=== PATIENT | male | born 1950 | race Caucasian/White ===

== ENCOUNTER 2017-01-16 16:44 | Inpatient (IN) | payer OTHER ==
[~2017-01-16] VITALS: Ht 175.3 cm; Wt 70.8 kg
[~2017-01-16 16:44] MED LIST: ASPI-1063 PO; BUSP15TA3 PO; CLON0.5T4 PO; FERR-57 PO; FLUT1AER INH; FLUT1DIS5 INH; LAMO100T PO; LASI20 IVP; LEVO175T2 PO; LUBI24CA5 PO; QUET50TA14 PO; TRAZ-126 PO
[2017-01-16 16:45] VITALS: BP 152/82; PULSE 79; RESP 19; TEMP 98; O2SAT 100
--- NOTE | 2017-01-16 16:45 | NUR ---
PT. PLACED IN ROOM 8, REPORT GIVEN TO MALENA GAYTAN
--- NOTE | 2017-01-16 17:00 | NUR ---
DR. FONG AT BEDSIDE EXAMINING THE PT.
--- NOTE | 2017-01-16 17:05 | NUR ---
Pt. 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
[2017-01-16] MEDS ORDERED: KETOROLAC TROMETHAMINE 60 MG/2 ML VIAL IM ONE (17:15)
--- NOTE | 2017-01-16 17:30 | NUR ---
Dietary called for diet tray
--- NOTE | 2017-01-16 18:11 | NUR ---
Pt. verbalizes comfort states pain 2/10 at this time
--- NOTE | 2017-01-16 19:49 | NUR ---
dr. Johnson at bedside talking to pt. about furthur care
--- NOTE | 2017-01-16 20:01 | NUR ---
medication reconciliation completed as stated by pt.
[2017-01-16 20:22] LABS: BASOPHILS # (AUTO) 0.1 K/uL (0.0-0.2); BASOPHILS % (AUTO) 0.8 % (0.0-2.0); EOSINOPHILS % (AUTO) 0.2 % (0.0-4.0); HEMATOCRIT 34.8 % (36-54); HEMOGLOBIN 11.4 g/dL (14.0-18.0); LYMPHOCYTES # (AUTO) 1.7 K/uL (1.0-5.5); LYMPHOCYTES % (AUTO) 20.9 % (20.5-51.5); MEAN CORPUSCULAR HEMOGLOBIN 28 pg (27-31); MEAN CORPUSCULAR HGB CONC 33 % (32-36); MEAN CORPUSCULAR VOLUME 84 fL (79.0-98.0); MONOCYTES # (AUTO) 0.8 K/uL (0.0-1.0); MONOCYTES % (AUTO) 9.6 % (1.7-9.3); NEUTROPHILS # (AUTO) 5.6 K/uL (1.8-7.7); NEUTROPHILS % (AUTO) 68.5 % (40.0-70.0); PLATELET COUNT (AUTO) 397 K/uL (130-430); RED BLOOD CELL COUNT(AUTO) 4.13 MIL/uL (4.2-6.2); RED CELL DISTRIBUTION WIDTH 14.3 % (9.0-15.0); WHITE BLOOD COUNT (AUTO) 8.2 K/uL (4.8-10.8)
[2017-01-16 20:25] LABS: ALANINE AMINOTRANSFERASE 19 U/L (12-78); ALBUMIN 3.1 g/dL (3.4-4.8); ANION GAP 4 (5-15); ASPARTATE AMINOTRANSFERASE 25 U/L (10-37); CALCIUM 9.4 mg/dL (8.4-11.0); CHLORIDE 104 mmol/L (98-107); CREATININE 1.41 mg/dL (0.55-1.30); GLUCOSE 113 mg/dL (70-99); POTASSIUM 4.3 mmol/L (3.5-5.1); SODIUM SERUM 136 mmol/L (136-145); TOTAL BILIRUBIN 0.3 mg/dL (0.0-1.0); TOTAL PROTEIN, SERUM 7.5 g/dL (6.4-8.3); UREA NITROGEN, BLOOD 31 mg/dL (8-21)
[2017-01-16 20:28] LABS: GFR AFRICAN AMERICAN 65 mL/min (>90)
[2017-01-16] MEDS ORDERED: MORPHINE 4 MG/ML INJ. SYRINGE IVP ONE (20:45)
--- NOTE | 2017-01-16 21:00 | NUR ---
called DR. West waiting on admission orders
[2017-01-16 21:38] LABS: LITHIUM < 0.2 mEq/L (0.50-1.0)
--- NOTE | 2017-01-16 22:00 | NUR ---
call from dr. West was disconnected, orders not received yet
[2017-01-16] MEDS ORDERED: ONDANSETRON HCL 4 MG/2 ML VIAL IVP PRN (22:45)
--- NOTE | 2017-01-16 22:55 | NUR ---
Patient will be admitted to care of dr. brambila. Admitted to med surg unit. Will go to room 135. Belongings list completed. Summary report printed. Report will be given at bedside.
[2017-01-16 23:05] VITALS: BP 101/59; PULSE 78; RESP 17; TEMP 98.5; O2SAT 100
--- NOTE | 2017-01-16 23:05 | NUR ---
ADMISSION NOTE Received patient from ER via gurney. Patient admitted with diagnosis of FRACTURE. Patient is awake, alert, oriented X 4. Patient oriented to hospital room, call light, toileting, pain management and safety-teach back done. Personal belongings checked and Belongings List documented. Call light within reach.
--- NOTE | 2017-01-16 23:10 | NUR ---
Initial Notes Received patient sitting in chair. Patient awake, alert, oriented. Denies any acute distress at this time. Vital signs stable. Breathing is even and unlabored on room air. IV site patent/clean/dry. Right need swollen and tender. 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 Scabs noted to bilateral knees, clean/dry, open to air, photos taken and charted. Educated patient on use of call light for assistance and fall precautions, patient verbalized understanding. Call light in hand, fall precautions in place, will continue to monitor.
--- NOTE | 2017-01-16 23:12 | NUR ---
paged paged for Dr West, dialed . s/w [facility].
[2017-01-16] MEDS: MORPHINE 2 MG/ML INJ. SYRINGE IVP PRN (23:36)
[2017-01-17] VITALS (8 sets, daily range): BP systolic 93–143; BP diastolic 53–80; PULSE 56–92; RESP 16–18; TEMP 96.7–98.1; O2SAT 92–99
--- NOTE | 2017-01-17 | NUR ---
Rounds Patient resting in bed, awake. Patient denies any acute distress, stated previous administered pain medication has helped. Breathing is even and unlabored. Snack given. Call light in hand, will continue to monitor.
--- NOTE | 2017-01-17 02:00 | NUR ---
Rounds Patient resting in bed with eyes closed. No acute distress noted, breathing is even and unlabored. Call light in hand, fall precautions in place. Will continue to monitor.
--- NOTE | 2017-01-17 04:06 | NUR ---
Rounds Patient resting in bed with eyes closed, easily aroused. Patient denies any acute distress or pain at this time. Breathing is even and unlabored. Needs addressed. Call light in hand, fall precautions in place. Will continue to monitor.
[2017-01-17] MEDS: MORPHINE 2 MG/ML INJ. SYRINGE IVP PRN (04:43)
--- NOTE | 2017-01-17 06:42 | NUR ---
Closing Notes Patient resting in bed, awake. Patient denies any acute distress or pain at this time. Breathing is even and unlabored. IV site patent/clean/dry, no S/S infection/infiltration noted. Needs addressed throughout shift. Call light in hand, fall precautions in place. Will continue to monitor for changes and safety, and endorse all patient care/needs to oncoming nurse.
--- NOTE | 2017-01-17 08:00 | NUR ---
initial notes rec pt awake alert and eating breakfast. ivl on the l ac intact. no infiltration noted.r knee noted to be swollen. pt requested to go out and smoke and was accompanied by cheko via wheelchair. resp easy and unlabored . bed in low position and side rails up and locked. call light within and knows when to call for assists. .
--- NOTE | 2017-01-17 09:00 | NUR ---
rounds seen by dr trujillo in the room and ordered for patient to have sx at 1700 today.
--- NOTE | 2017-01-17 09:28 | NUR ---
Nutrition Update Samuel Scale 18 noted. Pt admitted for: Fracture Diet: Regular diet. BMI: 23.1 kg/m2. RD to follow per nutrition care standards.
[2017-01-17] MEDS: MORPHINE 4 MG/ML INJ. SYRINGE IVP PRN ×4 (09:46→23:08)
--- NOTE | 2017-01-17 10:00 | NUR ---
rounds pt did sign a consent for sx with dr trujillo today. npo maintained and due pain med was given as requested.
[2017-01-17] MEDS ORDERED: PIPERACILLIN/TAZO 3.375/DEX-IS 50 ML IV SCH (10:15)
--- NOTE | 2017-01-17 10:17 | NUR ---
REASON FOR CONSULTATION:POSSIBLE SEPTIC ARTHTIS WAS CONSULT CALLED?Y PERSON WHO WAS NOTIFIED:KIM CONSULTING PHYSICIAN:DR. ORO VINYL CUTTER SPECIALTY:ID VINYL CUTTER PHONE NUMBER:[phone]
--- NOTE | 2017-01-17 12:30 | NUR ---
rounds pt was taken outside via wheelchair by brittany to smoke. no sob noted. awaiting for surgery.
--- NOTE | 2017-01-17 14:30 | NUR ---
rounds pt was picked up for surgery via bed. no sob noted.
[2017-01-17] MEDS ORDERED: CEFAZOLIN 2 GM IVPB PREMIX 50 ML IV ONE (15:15)
[2017-01-17] MEDS ORDERED: BUPIVACAINE /EPINEPHRINE/PF 0.25% 30 ML VIAL INJ ONE (15:15)
[2017-01-17] MEDS ORDERED: LR 1,000 ML IV.SOLN IV ONE (15:15)
[2017-01-17] MEDS ORDERED: fentaNYL CITRATE/PF 100 MCG/2 ML AMP IVP ONE (15:15)
[2017-01-17] MEDS ORDERED: NEOSTIGMINE METHYLSULFATE 1 MG/ML, 10 ML VIAL IVP ONE (15:15)
[2017-01-17] MEDS ORDERED: PROPOFOL 200MG/ 20ML VIAL (DIPRIVAN) IV ONE (15:15)
[2017-01-17] MEDS ORDERED: GLYCOPYRROLATE 0.2 MG/ML VIAL IJ ONE (15:15)
[2017-01-17] MEDS ORDERED: SEVOFLURANE 15 MIN GAS INH ONE (15:15)
[2017-01-17] MEDS ORDERED: MIDAZOLAM HCL 5 MG/5 ML VIAL IVP ONE (15:15)
[2017-01-17] MEDS ORDERED: ROCURONIUM BROMIDE 10 MG/ML (ZEMURON) IV ONE (15:15)
[2017-01-17] MEDS ORDERED: POLYMYXIN 500,000/BACIT.10,000 UNITS in NS IRR 1 L IR ONE ×2 (15:20→16:15)
[2017-01-17] MEDS ORDERED: PIPERACILLIN/TAZO 3.375/DEX-IS 50 ML IV ONE (15:30)
[2017-01-17] MEDS ORDERED: LR 1,000 ML IV SCH (16:43)
[2017-01-17] MEDS ORDERED: HYDROmorphone 2 MG/ML VIAL IVP PRN (16:45)
[2017-01-17] MEDS ORDERED: HYDROmorphone 1 MG INJ. 1 MG/ML AMPUL IVP PRN ×2 (16:45)
[2017-01-17] MEDS ORDERED: METOCLOPRAMIDE HCL 10 MG/2 ML VIAL IVP PRN (16:45)
[2017-01-17] MEDS: VANCOMYCIN HCL 1,500 MG in NS 250 ML IV SCH (18:51)
--- NOTE | 2017-01-17 20:00 | NUR ---
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 No distress or pain noted. He received his last pain shot Morphine 4 mg at 19:02. However, he is already asking when is the next pain shot due. No signs of pain noted. He appears agitated and wants to go out smoking. The nurse explained that later someone will be able to go out with him and he accepted that. The patient requested a sandwich and the nurse supplied a sandwich. IVF running smoothly, the nurse wrapped up the IV site to protect it. Report received from day shift nurse. There is a new order for ID consult for Dr. Patiño, the consult has been called.
--- NOTE | 2017-01-17 23:00 | NUR ---
NOTE Patient in bed napping. He woke up from the nurse leaving the room and he was unhappy that the nurse didn't bring his pain medication. The nurse explained that per policy if he is sleeping in peace, she would not bring the pain medication. He requested it now, so the nurse administered it. The patient went outside for smoking earlier and he was accompanied by a BEE KEEPER. He requested snacks and the nurse supplied juices, pudding, jello and crackers. No S/S of distress noted. Fall precautions in place.
[2017-01-17] MEDS: PIPERACILLIN/TAZO 3.375 GM in D5W 50 ML IV SCH (23:50)
--- NOTE | 2017-01-18 01:08 | NUR ---
NOTE Patient in bed napping. He woke up and complained from pain at the surgical site. He wanted to unwrap the site to see "what they did in surgery". The nurse explained the severe risks of infection if he does that. The patient also complained that the leg immobilizer is too tight and the nurse loosened it a little. No other signs of distress noted. Fall precautions in place.
--- NOTE | 2017-01-18 02:35 | NUR ---
NURSE'S NOTE RE: CALLING THE SURGEON The patient complained for about an hour of increasing burning pain and he said he never had that pain before. The nurse assessed him several time and she noticed that the knee is progressively swelling to the point that the patient called the nurse several times to loosen the straps of the leg immobilizer, because he stated:"He can't take it anymore". The nurse noticed that the right lower leg which at the beginning of the shift was cold and pale, became increasingly warm going down to the ankle. No fever was noted, VS within normal limits. The nurse decided to page the surgeon and Dr. Avilez was occupational health physiotherapist. The nurse explained her observations. Dr. Avilez stated that based on the description he considers the observations as a normal reaction after a surgery. He placed an order for Morphine 6 mg X1 and instructed the nurse to call him if that dose does not relieve the pain. After the conversation the nurse immediately went to assess the patient and take his blood pressure in order to administer the prescribed dose. The BP was 105/64, HR 78, the patient was sleeping when the nurse entered the room and he was in no distress. The nurse decided to hold off of giving the Morphine 6 mg and wait for the next PRN dose which was due in about half an hour. The patient is not in distress. Fall precautions in place.
[2017-01-18] MEDS ORDERED: MORPHINE 4 MG/ML INJ. SYRINGE IVP ONE (02:45)
--- NOTE | 2017-01-18 03:19 | NUR ---
CONSULTATION PAGED REASON FOR CONSULTATION:I AND D OF THE R KNEE WAS CONSULT CALLED?Y PERSON WHO WAS NOTIFIED:LARS CONSULTING PHYSICIAN:ROSE SOCIOLOGY INSTRUCTOR SPECIALTY:ID SOCIOLOGY INSTRUCTOR PHONE NUMBER:[phone]
[2017-01-18 03:39] VITALS: BP 128/62; PULSE 89; RESP 18; TEMP 97; O2SAT 97
--- NOTE | 2017-01-18 04:30 | NUR ---
ROUNDS Patient in bed sleeping. When the nurse entered the room, he woke up and stated that he does not want the IV pump running, because he cannot sleep from the beeping. The nurse explained that the beeping he hears comes from the neighboring rooms, but he still refused to let the nurse re-start the IVF. No S/S of distress or pain noted. Fall precautions in place.
--- NOTE | 2017-01-18 06:50 | NUR ---
FINAL NOTICE The nurse went to assess the patient and check whether he would need a pain shot. She found the patient naked in the bathroom strongly pulling the IV line and wanting to sit. The nurse quickly disconnected him, so he can go to the bathroom. The patient has not called for assistance despite the several times the nurse emphasized that he is not supposed to get up by himself and at all since he is post-surgery. The patient is non-compliant and he does not take any instructions about anything. He asked for pain medication and it was administered. The working IV line is the right AC site. In the beginning of the shift the nurse wrapped the Right dorsal IV line in attempt to preserve it, but due to the patient's extensive movement in bed and getting up, the IV line failed. Fall precautions in place. Report was given to the day shift nurse.
[2017-01-18] MEDS: MORPHINE 4 MG/ML INJ. SYRINGE IVP PRN ×5 (07:10→23:07)
[2017-01-18] MEDS: PIPERACILLIN/TAZO 3.375 GM in D5W 50 ML IV SCH ×2 (07:11→12:52)
[2017-01-18 08:00] VITALS: BP 98/73; PULSE 82; RESP 18; TEMP 97.6; O2SAT 99
--- NOTE | 2017-01-18 08:00 | NUR ---
initial notes rec patient awake alert and with iv beeping on his r ac. constantly remind patient to keep his arm straight but argues . ivl on the r hand infiltrated . satya bandage on the r knee in place and with an immobilizer. r knee noted to be swollen and warm to touch. resp easy and unlabored. no acute distress noted. fall/ safety precaution instructed. call light within reached.
--- NOTE | 2017-01-18 09:30 | NUR ---
rounds accompanied by mynor hartley outside via wheelchair to smoke.
--- NOTE | 2017-01-18 10:00 | NUR ---
rounds seen by dr trujillo in the room. no acute distress noted.
--- NOTE | 2017-01-18 10:45 | NUR ---
rounds iv restarted by dale gonzales charged nurse on the r hand and was medicated with pain med as requested.
[2017-01-18 12:00] VITALS: BP 143/73; PULSE 53; RESP 18; TEMP 98.4; O2SAT 93
--- NOTE | 2017-01-18 13:00 | NUR ---
rounds due med given as ordered. no sob noted. call light within reached .
[2017-01-18] MEDS: VANCOMYCIN HCL 1,500 MG in NS 250 ML IV SCH (13:12)
[2017-01-18 14:03] VITALS: Ht 175.3 cm; Wt 70.8 kg
--- NOTE | 2017-01-18 16:00 | NUR ---
rounds seen by dr hussein for consult and with orders.
[2017-01-18 16:15] VITALS: BP 139/79; PULSE 65; RESP 20; TEMP 97.7; O2SAT 98
--- NOTE | 2017-01-18 20:00 | NUR ---
Patient went out for smoking about 30 mins.
--- NOTE | 2017-01-18 20:26 | NUR ---
ID Consult Received T.O. from Dr. Moore to cancel consult for Dr. Whyte. Will notify exchange.
[2017-01-18 20:45] VITALS: BP 130/69; PULSE 67; RESP 18; TEMP 97.8; O2SAT 98
--- NOTE | 2017-01-18 20:45 | NUR ---
Initial note A/O x 3, no SOB, no chest pain, denied pain. Clear lung sounds and active bowel sounds. Patient had a smoking break earlier. Skin warm to touch, IV at R AC. L FA amputated. JERONIMO wrapped at R knee and immobilizer applied. Weak bilateral pedal pulses, cold to touch, mild sensation loss. Call light within reach, bed at lowest position, bed alarm on, will continue to monitor patient.
--- NOTE | 2017-01-18 20:52 | NUR ---
CANCEL CONSULT CALLED DOCTOR SILAS WEST TO CANCEL THE CONSULT
[2017-01-18] MEDS: CLINDAMYCIN 600 MG in D5W 50 ML IV SCH (21:40)
--- NOTE | 2017-01-18 21:50 | NUR ---
Provided Ivao x 2 as patient requested.
--- NOTE | 2017-01-18 22:10 | NUR ---
Rounds A/O x 3, no SOB, no chest pain, mild pain t R knee. Patient is aware of next dose of pain med will be around 2300. Skin warm to touch, IV at R AC. JERONIMO wrapped at R knee and immobilizer applied. Call light within reach, bed at lowest position, bed alarm on, will continue to monitor patient.
[2017-01-19] VITALS (7 sets, daily range): BP systolic 98–144; BP diastolic 59–91; PULSE 63–91; RESP 16–20; TEMP 98–98.7; O2SAT 95–100
--- NOTE | 2017-01-19 | NUR ---
Rounds Resting in bed, no SOB, no chest pain, no grimacing. Morphine IVP was given earlier. JERONIMO wrapped at R knee and immobilizer applied. Call light within reach, bed at lowest position, bed alarm on, will continue to monitor patient.
--- NOTE | 2017-01-19 02:00 | NUR ---
Rounds Resting/sleeping in bed, no SOB, no chest pain, no grimacing. Immobilizer on R knee. Call light within reach, bed at lowest position, bed alarm on, will continue to monitor patient.
[2017-01-19] MEDS: CLINDAMYCIN 600 MG in D5W 50 ML IV SCH ×3 (05:15→21:25)
--- NOTE | 2017-01-19 05:15 | NUR ---
Patient c/o R knee pain /, Morphine IVP given.
[2017-01-19] MEDS: MORPHINE 4 MG/ML INJ. SYRINGE IVP PRN ×4 (05:16→20:28)
--- NOTE | 2017-01-19 06:00 | NUR ---
Rounds Resting/sleeping in bed, no SOB, no chest pain, no grimacing. IV Clindamycin ongoing. Call light within reach, bed at lowest position, bed alarm on, will continue to monitor patient.
--- NOTE | 2017-01-19 07:30 | NUR ---
Closing note A/O x 3, no SOB, no chest pain,denied pain at this time. Report given to incoming nurse.
[2017-01-19] MEDS: MORPHINE 2 MG/ML INJ. SYRINGE IVP PRN ×5 (07:52→14:34)
--- NOTE | 2017-01-19 08:00 | NUR ---
NOTE PT SITTING ON SIDE OF BED AND EATING HIS BREAKFAST. NO SOB/RESP DISTRESS NOTED. PT'S RIGHT KNEE HAS JERONIMO WRAP AND IMMOBILIZER AT THIS TIME. IV IN RIGHT FOREARM INTACT AND PATENT. CALL LIGHT WITHIN REACH.
--- NOTE | 2017-01-19 10:00 | NUR ---
NOTE PT WAS GIVEN PAIN MEDICATION IVP FOR PAIN OF 8/10 ON PAIN SCALE OF 0/10 AT 09AM. PT WANTED TO GO OUT TO SMOKE IMMEDIATELY AFTER RECEIVING PAIN MEDICATION. TRANSFER ENGINEER TOOK PT OUT TO SMOKE IN WHEELCHAIR FOR HALF AN HOUR. PT NOW BACK IN BED. NO NEEDS NOTED. CALL LIGHT WITHIN REACH.
--- NOTE | 2017-01-19 12:00 | NUR ---
NOTE PT RESTING IN BED DROWSY AT THIS TIME. WAKENS UP QUICKLY SOON SOMEONE ENTERS HIS ROOM AND ASKS FOR PAIN MEDICATION. PT REEDUCATED AND HOUR OF NEXT DOSE OF PAIN MEDICATION PUT UP ON WHITE BOARD. PT VERBALIZES UNDERSTANDING. CALL LIGHT WITHIN REACH.
[2017-01-19] MEDS: VANCOMYCIN HCL 1,500 MG in NS 250 ML IV SCH (12:34)
--- NOTE | 2017-01-19 14:20 | NUR ---
NOTE PT RESTING IN BED AT THIS TIME. IVPB ANTIBIOTICS RUNNING WELL. PAIN TOLERABLE AT THIS TIME. NO NEEDS NOTED AT THIS TIME. CALL LIGHT WITHIN REACH.
--- NOTE | 2017-01-19 15:25 | NUR ---
NOTE PT WENT OUT TO SMOKE VIA WHEELCHAIR AGAIN WITH MILAGRO DICKSON. PT INSISTED THAT HE DOES NOT CARE THAT HIS 1245 ANTIBIOTIC (VANCO) IS NOT COMPLETED, HE HAS TO GO SMOKE. PT KEPT BENDING HIS ELBOW ON RIGHT HAND NEAR IV SITE (AC). IVPB ANTIBIOTIC RUNNING VERY SLOWLY AND IT WAS STOPPED WHEN PT WAS EATING HIS LUNCH AT 1300. WAITING FOR PT TO RETURN FROM SMOKING, SO VANCO IVPB CAN BE COMPLETED AND NEXT IVPB CLEOCIN CAN BE STARTED. PT NON-COMPLIANT AND VERY ADAMANT THINGS DONE HIS WAY.
--- NOTE | 2017-01-19 16:15 | NUR ---
NOTE PT RETURNED TO ROOM IN 15 MINUTES AND IVPB WAS REATTACHED. VANCO IVPB COMPLETED AND CLEOCIN IVPB WAS STARTED AT THIS TIME. PT REMINDED NOT TO BEND RIGHT ARM AT ELBOW, FOR IVPB ANTIBIOTICS TO INFUSE APPROPRIATELY AT THIS TIME. PT VERBALIZES UNDERSTANDING. CALL LIGHT WITHIN REACH. PT WATCHING TELEVISION.
--- NOTE | 2017-01-19 18:25 | NUR ---
NOTE PT RESTING IN BED WATCHING TELEVISION AT THIS TIME. IVF'S WERE SALINE LOCKED AFTER CLEOCIN IVPB ANTIBIOTIC WAS COMPLETED. PT'S PAIN LEVEL TOLERABLE AT THIS TIME. NO SOB/RESP DISTRESS NOTED AT THIS TIME. NO NEEDS NOTED. IV IN RIGHT FOREARM INTACT AND PATENT AT THIS TIME. CALL LIGHT WITHIN REACH.
--- NOTE | 2017-01-19 19:45 | NUR ---
Initial note A/O x 3, no SOB, no chest pain, c/o R knee pain 5/10 but aware of next pain med will be around 2030. Skin warm to touch, IV at R AC. JERONIMO dressing and immobolizer at R knee/leg. +1 pedal pulses bilateral feet and trace edema on BLE, cool to touch feet, mild sensation loss. L FA amputated. +2 R radial pulse. Clear lung sounds with some dry cough. Able to inhale incentive spirometer (IS) about 4868-4537 ml. Active bowel sounds. Patient stated he said BM earlier. Instructed patient to call SN to check before flush. Soft, no distended ABD. Call light within reach, bed at lowest position, will continue to monitor patient.
--- NOTE | 2017-01-19 20:06 | NUR ---
Patient out for smoking. RIG OPERATOR assisted and with patient.
--- NOTE | 2017-01-19 20:33 | NUR ---
Patient back from smoking. Morphine IVP given as patient requested for R knee 04/03.
--- NOTE | 2017-01-19 22:00 | NUR ---
Rounds A/O x 3, no SOB, no chest pain, c/o mild pain at R knee pain. Skin warm to touch, IV at R AC, Clindamycin ongoing. JERONIMO dressing and immobilizer at R knee/leg. Resting in bed, bed alarm on, call light within reach, will continue to monitor patient.
--- NOTE | 2017-01-20 00:05 | NUR ---
Rounds Sleeping in bed, no SOB, no chest pain, no grimacing. Call light within reach, bed at lowest position, bed alarm on. Will continue to monitor patient.
[2017-01-20] MEDS: MORPHINE 4 MG/ML INJ. SYRINGE IVP PRN ×2 (01:35→06:13)
--- NOTE | 2017-01-20 02:10 | NUR ---
Informed patient that he cannot smoke outside at this time because it's midnight and it's not safe. Patient can smoke in the morning.
--- NOTE | 2017-01-20 02:29 | NUR ---
Rounds Patient is sleeping in bed at this time after receiving Morphine IVP. No SOB, no chest pain, no grimacing. Call light within reach, bed at lowest position, bed alarm on. Will continue to monitor patient.
[2017-01-20 04:33] VITALS: BP 120/56; PULSE 60; RESP 16; TEMP 98; O2SAT 98
--- NOTE | 2017-01-20 04:40 | NUR ---
Rounds Sleeping in bed, no SOB, no chest pain, no grimacing. Call light within reach, bed at lowest position, bed alarm on, will continue to monitor patient.
[2017-01-20] MEDS: CLINDAMYCIN 600 MG in D5W 50 ML IV SCH ×3 (05:16→21:24)
--- NOTE | 2017-01-20 06:14 | NUR ---
Rounds Awake in bed, no SOB, no chest pain, c/o R knee pain, Morphine IVP given. Call light within reach, bed at lowest position, bed alarm on, will continue to monitor patient.
[2017-01-20 06:40] LABS: ALBUMIN 2.7 g/dL (3.4-4.8); CALCIUM 9.1 mg/dL (8.4-11.0); TOTAL BILIRUBIN 0.2 mg/dL (0.0-1.0); TOTAL PROTEIN, SERUM 6.8 g/dL (6.4-8.3)
[2017-01-20 06:58] LABS: BASOPHILS # (AUTO) 0.1 K/uL (0.0-0.2); EOSINOPHILS # (AUTO) 0.2 K/uL (0.0-0.4); EOSINOPHILS % (AUTO) 3.3 % (0.0-4.0); HEMATOCRIT 31.4 % (36-54); HEMOGLOBIN 10.3 g/dL (14.0-18.0); LYMPHOCYTES % (AUTO) 29.5 % (20.5-51.5); MEAN CORPUSCULAR HEMOGLOBIN 28 pg (27-31); MEAN CORPUSCULAR HGB CONC 33 % (32-36); MEAN CORPUSCULAR VOLUME 84 fL (79.0-98.0); MONOCYTES # (AUTO) 0.5 K/uL (0.0-1.0); MONOCYTES % (AUTO) 7.4 % (1.7-9.3); NEUTROPHILS % (AUTO) 58.8 % (40.0-70.0); PLATELET COUNT (AUTO) 361 K/uL (130-430); RED BLOOD CELL COUNT(AUTO) 3.73 MIL/uL (4.2-6.2); RED CELL DISTRIBUTION WIDTH 13.8 % (9.0-15.0); WHITE BLOOD COUNT (AUTO) 6.8 K/uL (4.8-10.8)
--- NOTE | 2017-01-20 07:31 | NUR ---
Closing note Awake in bed, no SOB, no chest pain, pain decreased after Morphine. Call light within reach, bed at lowest position, bed alarm on, report given to incoming nurse.
[2017-01-20 08:00] VITALS: BP 125/71; PULSE 54; RESP 18; TEMP 98.3; O2SAT 100
--- NOTE | 2017-01-20 08:00 | NUR ---
NOTE PT RESTING IN BED, BREAKFAST TRAY AT BEDSIDE, PT STATES HE WILL EAT IN A FEW MINUTES. NO SOB/RESP DISTRESS NOTED. PAIN TOLERABLE AT THIS TIME. CALL LIGHT WITHIN REACH.
--- NOTE | 2017-01-20 10:00 | NUR ---
NOTE DR BRIONES CAME TO SEE PT. RIGHT KNEE DRESSING WAS REMOVED AND LEFT OPEN TO AIR AT THIS TIME. RIGHT KNEE INCISION INTACT WITH VLADIMIR. NO BLEEDING/DRAINAGE/REDNESS NOTED AT THIS TIME. PT REQUESTED THAT HIS PAIN MEDICATION BE CHANGED, STATES HE IS NOT GETTING MUCH RELIEF FROM MORPHINE 4MG IVP Q4. PAIN MEDICATION NOW DILAUDID 5MG PO Q3. PT RESTING IN BED WITH RIGHT KNEE IMMOBILIZER IN PLACE. CALL LIGHT WITHIN REACH.
[2017-01-20] MEDS: HYDROmorphone 2 MG TAB PO PRN ×4 (10:30→20:27)
--- NOTE | 2017-01-20 11:55 | NUR ---
NOTE PT RESTING IN BED. REQUESTING SOMEONE TAKE HIM OUT TO [facility] TO SMOKE. PT WAS NOTIFIED THAT AT THIS TIME, THERE WAS NO ONE TO TAKE HIM TO SMOKE, SOMEONE WOULD BE AVAILABLE IN THE NEAR FUTURE. PT WAS TAKEN OUT VIA WHEELCHAIR AT 0930AM TO SMOKE. PT NOW RESTING IN BED. CALL LIGHT WITHIN REACH.
[2017-01-20 12:00] VITALS: BP 134/84; PULSE 63; RESP 18; TEMP 97.4; O2SAT 95
[2017-01-20] MEDS: VANCOMYCIN HCL 1,500 MG in NS 250 ML IV SCH (12:22)
--- NOTE | 2017-01-20 14:00 | NUR ---
NOTE PT REMINDED COUNTLESS TIMES TO KEEP RIGHT ARM STRAIGHT SO IVPB ANTIBIOTICS CAN INFUSE PROPERLY. PT FORGETS AND BENDS ARM NUMBER OF TIMES. NO NEEDS NOTED. PAIN TOLERABLE AT THIS TIME. CALL LIGHT WITHIN REACH.
[2017-01-20 16:00] VITALS: BP 124/75; PULSE 67; RESP 18; TEMP 98.1; O2SAT 94
--- NOTE | 2017-01-20 16:30 | NUR ---
NOTE PT WAS TAKEN OUT TO SMOKE AT 1600 ONCE 2 IVPB ANTIBIOTICS WERE COMPLETED. PT RETURNED TO ROOM WITHIN 15 MINUTES. THIS IS THE 3RD TIME PT INSISTED ON GOING OUT TO SMOKE THIS SHIFT. RIGHT KNEE INCISION INTACT WITH VLADIMIR. NO BLEEDING/DRAINAGE NOTED. CALL LIGHT WITHIN REACH.
--- NOTE | 2017-01-20 18:40 | NUR ---
NOTE PT RESTING IN BED. RIGHT AC IV INTACT AND PATENT AT THIS TIME. NO SOB/RESP DISTRESS OR PAIN/DISCOMFORT NOTED AT THIS TIME. PT'S RIGHT KNEE INCISION INTACT WITH VLADIMIR. NO BLEEDING/DRAINAGE NOTED AT THIS TIME. RIGHT LEG IMMOBILIZER HAS BEEN ON ALL SHIFT. CALL LIGHT WITHIN REACH. NO NEEDS NOTED AT THIS TIME.
[2017-01-20 20:00] VITALS: BP 127/77; PULSE 64; RESP 18; TEMP 98.4; O2SAT 96
--- NOTE | 2017-01-20 20:00 | NUR ---
Initial Notes Received patient resting in bed, awake, alert, oriented. Patient denies any acute distress or pain at this time. Vital signs stable. Breathing is even and unlabored on room air. IV site to right AC patent/clean/dry. Surgical incision and edgardo present to right knee, knee immobilizer in use. Patient attempting to remove immobilizer, educated patient on its importance and advised to leave in place, patient verbalized understanding. Educated patient on use of call light for assistance and fall precautions, patient verbalized understanding. Patient requesting to be assisted outside to smoke, FIELD ADVISOR notified. Call light in hand, will continue to monitor.
--- NOTE | 2017-01-20 20:30 | NUR ---
Returned from Smoke and Pain medication Patient back in bed from being assisted outside to smoke by PEGGER DOBBY LOOMS, NAD noted/reported. Medicated patient for pain per MD orders. Call light in hand, will continue to monitor.
--- NOTE | 2017-01-20 22:06 | NUR ---
Rounds Patient resting in bed with eyes closed, easily aroused by nurse entering room. Patient denies any acute distress or pain at this time. Breathing is even and unlabored. IV site patent/clean/dry. Needs addressed, call light in hand. Will continue to monitor.
[2017-01-21] VITALS (8 sets, daily range): BP systolic 114–148; BP diastolic 62–82; PULSE 60–66; RESP 16–20; TEMP 96.6–98; O2SAT 96–100
--- NOTE | 2017-01-21 00:40 | NUR ---
Rounds Patient resting in bed, awake. Patient denies any acute distress at this time. Breathing is even and unlabored. Medicated patient for pain per MD orders. Knee immobilizer in place, patient tolerating well. Needs addressed. Call light in hand, will continue to monitor.
[2017-01-21] MEDS: HYDROmorphone 2 MG TAB PO PRN ×5 (00:41→17:22)
--- NOTE | 2017-01-21 02:00 | NUR ---
Rounds Patient resting in with eyes closed. No acute distress noted, breathing is even and unlabored. Knee immobilizer in place. Call light in hand, will continue to monitor.
--- NOTE | 2017-01-21 04:00 | NUR ---
Rounds Patient resting in bed with eyes closed. No acute distress noted, breathing even and unlabored. Will continue to monitor.
[2017-01-21] MEDS: CLINDAMYCIN 600 MG in D5W 50 ML IV SCH ×2 (05:03→14:00)
[2017-01-21 06:23] LABS: BASOPHILS # (AUTO) 0.1 K/uL (0.0-0.2); BASOPHILS % (AUTO) 0.9 % (0.0-2.0); EOSINOPHILS # (AUTO) 0.3 K/uL (0.0-0.4); EOSINOPHILS % (AUTO) 4.6 % (0.0-4.0); HEMATOCRIT 32.1 % (36-54); HEMOGLOBIN 10.3 g/dL (14.0-18.0); LYMPHOCYTES # (AUTO) 2.5 K/uL (1.0-5.5); LYMPHOCYTES % (AUTO) 35.8 % (20.5-51.5); MEAN CORPUSCULAR HEMOGLOBIN 27 pg (27-31); MEAN CORPUSCULAR HGB CONC 32 % (32-36); MEAN CORPUSCULAR VOLUME 85 fL (79.0-98.0); MONOCYTES # (AUTO) 0.6 K/uL (0.0-1.0); NEUTROPHILS # (AUTO) 3.4 K/uL (1.8-7.7); NEUTROPHILS % (AUTO) 49.7 % (40.0-70.0); PLATELET COUNT (AUTO) 381 K/uL (130-430); RED BLOOD CELL COUNT(AUTO) 3.78 MIL/uL (4.2-6.2); RED CELL DISTRIBUTION WIDTH 14.2 % (9.0-15.0); WHITE BLOOD COUNT (AUTO) 6.9 K/uL (4.8-10.8)
[2017-01-21 06:34] LABS: ALBUMIN 2.5 g/dL (3.4-4.8); CALCIUM 9.3 mg/dL (8.4-11.0); CREATININE 1.02 mg/dL (0.55-1.30); POTASSIUM 4.1 mmol/L (3.5-5.1); TOTAL BILIRUBIN 0.2 mg/dL (0.0-1.0); TOTAL PROTEIN, SERUM 6.4 g/dL (6.4-8.3)
--- NOTE | 2017-01-21 06:47 | NUR ---
Closing Notes Patient resting in bed, awake. Patient denies any acute distress at this time. Breathing is even and unlabored on room air. Patient accidently pulled out IV access while using bathroom, patient had bowel movement. New IV access started right forearm #22, patent/clean/dry, good blood return noted, patient tolerated well. Knee immobilizer in place. Needs addressed throughout shift. Call light in hand, fall precautions in place. Will continue to monitor for changes and safety, and endorse all patient care/needs to oncoming nurse.
--- NOTE | 2017-01-21 08:00 | NUR ---
opening note patient is awake, alert. mildly cooperative. states he wants to go home but wants to speak to dr trujillo first for pain medication prescriptions. states he needs to smoke right now. lungs wheezes throughout. left arm amputee below elbow, congenital. all other peripheral pulses present. patient is refusing to keep knee straight while in immobilizer. explained purpose of immobilizer, patient would not verbalize understanding. patient is asking when he can get his pain medication. multiple dry scabs to ble, multiple edgardo to r knee, open to air per orders.
--- NOTE | 2017-01-21 09:45 | NUR ---
picc line ordere by dr kosta md signed consent. patient signed consent. picc line nurse notified.
[2017-01-21 10:28] LABS: INR 0.9 (0.80-1.20); PROTHROMBIN TIME 10.1 SECS (9.5-12.5)
--- NOTE | 2017-01-21 11:30 | NUR ---
patient stated his blood sugar was getting low. no explanation or symptoms given as to why. requested to have his sugars checked. pt bg was 115.
--- NOTE | 2017-01-21 11:42 | NUR ---
PICC lineRn at bedside for procedure, time-out performed and all consents signed.
--- NOTE | 2017-01-21 11:48 | NUR ---
HCP/PA: Called JIMMIE Mandujano made her aware of discharge order. JIMMIE Mandujano currently working on arrange home health and will notify DCP/RN.
[2017-01-21] MEDS: VANCOMYCIN HCL 1,500 MG in NS 250 ML IV SCH (13:15)
--- NOTE | 2017-01-21 13:20 | NUR ---
PATIENT MEDICATED WITH VANCOMYCIN PER ORDERS AFTER TROUGH BLOOD DRAW PERFORMED. PATIENT YELLED AT ME STATING HE DID NOT WANT TO BE HOOKED UP TO THE IV UNTIL HE RETURNED FROM SMOKING, STATES HE WILL BE GOING OUT TO SMOKE AFTER 1330. ADVISED PT HIS VANCOMYCIN IS DUE NOW AND HE CAN TAKE IT WITH HIM WHEN WAREHOUSE INSULATION WORKER TAKES HIM OUTSIDE
--- NOTE | 2017-01-21 14:02 | NUR ---
PATIENT TAKEN OUT TO SMOKE W DRY KILN BURNER VIA WHEELCHAIR. IV ABX STOPPED WHILE OUTSIDE
--- NOTE | 2017-01-21 14:50 | NUR ---
PATIENT PLACED BACK ON IV THERAPY, BLEEDING TO R KNEE NOTED. DRESSED WITH GAUZE AND BLEEDING CONTROLLED. ADVISED PATIENT AGAIN IT IS IMPORTANT TO KEEP KNEE STRAIGHT
--- NOTE | 2017-01-21 18:22 | NUR ---
CALL FROM HCP PHOSPHORUS PROCESSING SUPERVISOR: PT IS ACCEPTED BY AGENCY, PER [email or web address] THEY HAVE AN RN TO COVER THE PATIENT AT HOME FOR DOSING WELL. PHONE CALL FROM DR MASSEY IMMEDIATELY AFTERWARD STATING OK TO SEND PT HOME NOW BECAUSE HH WILL KICK IN TOMORROW IN TIME FOR NEXT DOSE.
--- NOTE | 2017-01-21 19:50 | NUR ---
Patient discharged Patient discharged to home with home health per MD order. Home health already arranged to meet patient tomorrow per prior nurse Rodriguez. Patient in no acute distress or pain. Vital signs stable. Peripheral IV access removed. PICC line patent/clean/dry, no S/S infection/infiltration noted. Educated patient on home health, and to leave knee immobilizer in place. Patient continually attempting to remove immobilizer. Patient off unit at 1950 via wheelchair with MANAGER SPEECH assistance, picked up by [employer], transportation arranged by patient personally. All discharge paperwork and personally belongings with patient.
--- NOTE | 2017-01-23 16:37 | NUR ---
Discharge Follow Up Phone Call QUALITY PROJECT MANAGER phoned patient, . Patient stated he is doing okay but still having pain. He stated the home health agency has been coming out and administering IV antibiotics. Patient can walk to the kitchen and the toilet. He has someone who assists him with groceries and drives him where he needs to go. Patient feels he is managing okay at home. Patient stated he could not attend a follow up appointment this week because of limited mobility. He has been in contact with his doctor to arrange follow up appointments for next week. Patient has no questions or concerns.
== END 2017-01-21 19:48 | disposition home health service (06) | DRG 485 ==
LOC: SED 16:44 → SMU 22:42
PROVIDERS: ADMIT Internal Medicine Hospice and Palliative Medicine; ATTEND Internal Medicine Hospice and Palliative Medicine
PROC: 0S9C0ZZ Drainage of Right Knee Joint, Open Approach (ICD-10-PCS; 2017-01-17)
PROC: 0LMQ0ZZ Reattachment of Right Knee Tendon, Open Approach (ICD-10-PCS; 2017-01-17)
PROC: 02HV33Z Insertion of Infusion Device into Superior Vena Cava, Percutaneous Approach (ICD-10-PCS; principal; 2017-01-21)
DX: T84.53XA Infection and inflammatory reaction due to internal right knee prosthesis, initial encounter (principal); E43 Unspecified severe protein-calorie malnutrition; I10 Essential (primary) hypertension; E78.5 Hyperlipidemia, unspecified; R29.6 Repeated falls; Y83.1 Surgical operation with implant of artificial internal device as the cause of abnormal reaction of the patient, or of later complication, without mention of misadventure at the time of the procedure; S76.111A Strain of right quadriceps muscle, fascia and tendon, initial encounter; E78.00 Pure hypercholesterolemia, unspecified; F31.9 Bipolar disorder, unspecified; X58.XXXA Exposure to other specified factors, initial encounter; Z89.212 Acquired absence of left upper limb below elbow; Z79.899 Other long term (current) drug therapy; Y93.89 Activity, other specified; Y92.89 Other specified places as the place of occurrence of the external cause; Y99.8 Other external cause status; Z68.23 Body mass index [BMI] 23.0-23.9, adult
CPT/HCPCS: 36415; 71010; 73560-TC; 80053; 80178-TC; 80202-TC; 82962; 85025; 85610-TC; 85651-TC; 85730-TC; 87040-TC; 87070; 87070-TC; 87075-TC; 93005; 94010; 96372; 96374; 99285; C1751; C1769; J0690; J1170; J1885; J2250; J2270; J2543; J2704; J2710; J3010; J3370; J3490; J7050; J7060; J7120